=== PATIENT | female | born 1940 | race Caucasian/White ===

== ENCOUNTER 2023-10-04 13:02 | Inpatient (IN) | payer OTHER, SELFPAY ==
[2023-10-04 08:04] VITALS: BP 170/72
[2023-10-04 08:11] VITALS: BMI 29.2
[2023-10-04] MEDS: TYLENOL 1000 MG PO (09:16)
--- NOTE | 2023-10-04 09:22 | ED.GENMED ---
History of Present Illness
General
Chief Complaint: Fall
Source: patient
Exam Limitations: none
Time Seen by Provider: 10/04/23 08:24
Nursing documentation reviewed up to this point in time: agreed with
Travel History
Have you had any contact with someone who has COVID-19?: No
Do you have any symptoms of coronavirus? Fever > 100 degrees, chills, cough, shortness of breath, sore throat, loss of taste or smell, muscle aches, or headache?: No
History of Present Illness
History of Present Illness:
Patient presents to ED for evaluation after losing balance and falling onto ceramic floor this morning, while using her rolling walker. Patient denies loss of consciousness. Denies headache. Denies neck pain. Patient is complaining of left wrist
and elbow pain from the fall. Patient unsure of her last tetanus vaccination.
Past History
Past History
ED Past Medical History: Hypercholesterolemia, Hypothyroidism and Other (kidney stone)
ED Past Surgical History: Orthopedic
Social History
Tobacco: Non-smoker
Alcohol: None
Review of Systems
Review of Systems
Allergies reviewed?: Yes
All Other Systems: ROS reviewed and negative except as documented in HPI and ROS
Constitutional: Reports no symptoms
Respiratory: Reports no symptoms
Cardiac: Reports no symptoms; Denies chest pain, palpitations or syncope
ABD/GI: Reports no symptoms
Musculoskeletal: Reports other (Elbow and wrist pain with swelling)
Skin: Reports no symptoms
Neurological: Reports no symptoms
Phy Exam
Physical Exam
Physical Exam:
Physical Exam
General: mild painful distress, not acutely ill. afebrile
Head: nc/at. eomi
Neck: supple. normal range of motion.
Heart: s1/s2 regular rate and rhythm, no murmur. equal radial pulses.
Lungs: no acute respiratory distress. clear bilaterally
Abdomen: normal bowel sounds. not tender.
Neuro: alert and oriented. no focal neurological deficits
Skin: superficial laceration noted distal to left olecranon with moderate swelling.
Psychiatric: well kept. interactive and cooperative
Extremities: left wrist tenderness, with an approx 1mm laceration on the volar surface, without active bleeding.
Course
Orders/Labs/Results
Orders:
Orders
10/04/23 08:51
Acetaminophen [Tylenol] 1,000 mg PO NOW STA
Tetanus/Diphth/Acelpertussis [Adacel] 0.5 ml IM .ONCE ONE
CR Elbow - Left Min 3 Views Urgent
Comment:
Reason For Exam: trauma
CR Wrist - Left Min 3 Views Urgent
Comment:
Reason For Exam: trauma
10/04/23 Lunch
Regular
At Your Request: Limited, Lens Block Gauger Required
Reason for opting out of [employer] order writing: Provider Decision
10/04/23 10:13
Electrocardiogram (*1) Urgent
Reason for Study: PreOp
EKG- Treatment ONCE
HYDROmorphone [Dilaudid] 0.5 mg IV NOW STA
10/04/23 10:26
Basic Metabolic Panel Urgent
Complete Blood Count/No Diff Urgent
PTT Urgent
Prothrombin Time Urgent
10/04/23 10:30
CeFAZolin 1 GRAM [Ancef] 1 gram in 5 ml IV NOW
10/04/23 12:41
HYDROmorphone [Dilaudid] 0.5 mg IV Q3HPRN PRN
Ondansetron Injectable [Zofran] 4 mg IV Q6HPRN PRN
10/04/23 12:42
HydrALAZINE [Apresoline] 50 mg PO TIDPRN PRN
10/04/23 12:43
Admit/Transfer Patient As Directed
Co-Sign Provider:
Level of Care: Inpatient admission
Assign to:: Medical/Surgical
Physician / Group: christiane okeefe
Diagnosis: left elbow/wrist fracture
Reason for Hospitalization: left elbow/wrist fracture
Expected length of stay greater than two midnights?: Yes
ELOS- Estimated Length of Stay in days: 2
I certify the patient meets the requirements for IP care: Yes
10/04/23 12:50
Code Status As Directed
Resuscitation Status: Full Code
10/04/23 14:20
Polyethylene Glycol Powder [Miralax] 17 grams PO DAILY
10/04/23 14:20
ORTHOPEDIC CONSULT Routine
Consulting Provider: Alfredo Shea
Was physician already notified: Yes
Activity As Directed
Activity Level: Ambulate
Pneumatic Compression Sleeves As Directed
Type: Knee high
Vital Signs As Directed
Frequency: Per unit guidelines
Ot Eval And Treat Routine
Pt Eval And Treat Routine
Activity Level: Ambulate
DX Deep Vein Thrombosis Video Routine
10/04/23 16:27
Artificial Tears (Pf) [Refresh Eye Drops (Pf)] 0 drops OPHTH BIDPRN PRN
10/04/23 20:00
Brimonidine Tartrate/Timolol [Combigan Eye Drops] 1 drop LEFT EYE BID
10/04/23 22:00
Citalopram [Celexa] 20 mg PO HS
Rosuvastatin Calcium [Crestor] 20 mg PO HS
tafluprost (PF) [Zioptan (PF)] 1 drop BOTH EYES HS
10/05/23 06:00
CeFAZolin 2 GRAM [Ancef] 2 grams in 10 ml IV PRE PROCEDURE
10/05/23 06:24
Basic Metabolic Panel IN AM
Complete Blood Count/No Diff IN AM
Magnesium IN AM
10/05/23 07:00
Levothyroxine [Synthroid] 88 mcg PO DAILY@0700
10/05/23 08:00
Calcium Carbonate [Oscal Iron 500] 1,000 mg PO DAILY
Estradiol Vaginal [Estrace 0.01% Vaginal Cream] 1 applic VAG DAILY
Lactobac/Bifidobac [Visbiome] 1 cap PO DAILY
10/06/23 06:00
Basic Metabolic Panel IN AM
Complete Blood Count/No Diff IN AM
10/07/23 06:00
Basic Metabolic Panel IN AM
Complete Blood Count/No Diff IN AM
Abnormal Lab Results
10/04/23
10:26
WBC 12.1 H 10^3/uL
(4.8-10.8)
Chloride 108 H mmol/L
(98-107)
Glucose 116 H mg/dl
(70-99)
10/04/23 10:26
10/04/23 10:26
Vital Signs
Initial and Last Documented VS:
Initial Vital Signs
Temp Pulse Resp BP Pulse Ox
98.1 F 59 20 170/72 99
10/04/23 08:04 10/04/23 08:04 10/04/23 08:04 10/04/23 08:04 10/04/23 08:04
Last Documented Vital Signs
Temp Pulse Resp BP Pulse Ox
98.1 F 122 16 206/106 94
10/05/23 10:05 10/05/23 10:05 10/05/23 10:05 10/05/23 10:05 10/05/23 10:05
MDM/Problems Addressed
MDM/Problems Addressed:
X-ray report reviewed and discussed with (orthopaedic surgery). Recommends irrigating with betadine and steri strip application, along with iv ancef 1g iv Q8hr. Will see patient as consult.
*Critical Care Note
Total Time (30-74mins, 75-104mins- exclusive of procedures): Not Applicable
ED Attending Note
-
Portions of this chart may have been created with voice recognition software.� Occasional wrong word or��sound alike� substitutions may have occurred due to the inherent limitations of voice recognition software.
Discharge Plan
Departure
Patient Disposition: Admit
Date of Disposition: 10/04/23
Time of Disposition: 10:33
Admit to: Med/Surg
Presentation/result/management discussed w/ accepting MD/DO: Hospitalist
Discharge Problem:
Elbow fracture, Fracture of wrist, Laceration
Interventions
Interventions:
*Risk Screen - Suicide Last Done: 10/04/23 08:11
*General Assessment Last Done: 10/04/23 08:11
*Neglect/Abuse Screening Last Done: 10/04/23 08:11
*ED COVID-19 Vaccine History Last Done: 10/04/23 08:04
*Nursing Disposition Last Done: 10/04/23 14:25
ED-Musculoskeletal Assessment Last Done: 10/04/23 08:13
ED- Neurological Assessment Last Done: 10/04/23 08:12
ED-Skin Assessment Last Done: 10/04/23 08:12
Discharge Date and Time
Discharge Date/Time: 10/04/23 14:26
[2023-10-04 09:37] VITALS: BP 171/89
[2023-10-04 10:00] VITALS: BP 174/72
[2023-10-04] MEDS: DILAUDID 0.5 MG IV ×3 (10:24→20:22)
[2023-10-04 10:32] LABS: Hematocrit 40.4 % (37.0-47.0); Hemoglobin 13.8 g/dL (12.0-16.0); Mean Corp Hgb Conc. 34.2 g/dL (33.0-37.0); Mean Corpuscular Hgb 30.4 pg (27.0-31.0); Mean Platelet Volume 8.3 fL (7.4-10.4); Platelet Count 333 10^3/uL (130-400); Red Blood Cell Count 4.54 10^6/uL (4.20-5.40); Red Cell Dist. Width 13.2 % (11.5-14.5); White Blood Cell Count 12.1 10^3/uL (4.8-10.8)
[2023-10-04 10:43] LABS: INR 1.05; PT 13.5 Sec (11.4-14.6)
[2023-10-04 10:44] LABS: APTT 33.7 Sec (23.4-35.0)
--- NOTE | 2023-10-04 11:10 | W.PN.UPDATE ---
Update Note
Progress Note Update
Chart reviewed and case discussed with Dr. Lombardo
Can treat elbow fx conservatively
Would recommend closed reduction and pinning for distal radius and ulna tomorrow
For OR in AM//Made NPO
Thanks
GGMD
[2023-10-04 11:38] LABS: Blood Urea Nitrogen 15 mg/dl (7-17); Calcium 9.6 mg/dl (8.4-10.2); Carbon Dioxide 26 mmol/L (22-30); Chloride 108 mmol/L (98-107); Estimated Creatinine Clearance 45 ml/min; Glucose 116 mg/dl (70-99); Potassium 3.5 mmol/L (3.5-5.1); Sodium 139 mmol/L (135-145); eGFR > 60.00
[2023-10-04] MEDS: ANCEF 5 IV (11:49)
--- NOTE | 2023-10-04 12:03 | HPS.HSE ---
Family Physician
-
Family Physician: Dawn Liu
Chief Complaint
-
left wrist pain
History of Present Illness
82-year-old female with a past medical history of osteoporosis, recurrent bone fractures, recurrent mechanical falls, hypothyroidism, and hyperlipidemia presents with left wrist pain status post mechanical fall. Patient was using her rolling
walker, lost her balance, and fell onto the ceramic floor this morning. She did hit her head, denies loss of consciousness. Denies headache, denies nausea, denies vomiting. She was found to have an acute on chronic fracture of the distal radius
and ulnar, as well as an acute left olecranon fracture. No chest pain, no shortness of breath, no palpitations. No nausea, no vomiting. No lightheadedness, no dizziness. No dysuria.
Medical History
Past Medical History
Past Medical History: Reports Other
Additional Past Medical History:
Recurrent ureterolithiasis
Recurrent cystitis
Hypercholesterolemia
Hypothyroidism
Anxiety
Osteoporosis
Recurrent mechanical falls
Past Surgical History: Reports Other
Additional Past Surgical History:
Multiple cystoscopies with stent placements
Left total hip replacement with revision
Appendectomy
Left shoulder surgery
Right knee surgery
Bilateral carpal tunnel release
Social History
Tobacco: Non-smoker
Alcohol: None
Drug: None
Family History
Family History: Not pertinent
Allergies / Home Medications
Allergies reflects when Allergies were last updated in [employer].
Home Medications with original date entered in [employer]
Allergy/Medication List:
Allergies
Allergy/AdvReac Type Severity Reaction Status Date / Time
No Known Allergies Allergy Verified 03/08/23 09:15
Home Medications Table - record
Medication Instructions Recorded Confirmed
Lactobacillus acidophilus 10 10,000 mmu cells PO DAILY 02/21/23 10/04/23
billion cell capsule (Probiotic)
ascorbic acid (vitamin C) 250 mg 250 mg PO DAILY 02/21/23 10/04/23
chewable tablet (Vitamin C)
calcium carbonate 500 mg calcium 1,000 mg PO DAILY 02/21/23 10/04/23
(1,250 mg) tablet
citalopram 20 mg tablet 20 mg PO HS 02/21/23 10/04/23
cranberry extract 200 mg capsule 200 mg PO DAILY 02/21/23 10/04/23
(Ellura)
docusate sodium 100 mg capsule 100 mg PO DAILY 02/21/23 10/04/23
(Colace)
estradiol 0.01% (0.1 mg/gram) 0 appful vaginal DAILY 02/21/23 10/04/23
vaginal cream
glucosamine sulfate 500 mg tablet 500 mg PO DAILY 02/21/23 10/04/23
(Glucosamine)
levothyroxine 88 mcg tablet 88 mcg PO DAILY 02/21/23 10/04/23
(Levoxyl)
multivitamin 1 tab PO DAILY 02/21/23 10/04/23
polyvinyl alcohol 1.4 % eye drops 1 drp BOTH EYES BIDPRN PRN dry eyes 02/21/23 10/04/23
rosuvastatin 20 mg tablet (Crestor) 20 mg PO HS 02/21/23 10/04/23
tafluprost (PF) 0.0015 % eye drops 1 drp BOTH EYES HS 02/21/23 10/04/23
in a dropperette (Zioptan (PF))
brimonidine 0.2 %-timolol 0.5 % 1 drp LEFT EYE BID 10/04/23 10/04/23
eye drops (Combigan)
magnesium 250 mg tablet 250 mg PO DAILY 10/04/23 10/04/23
Review of Systems
-
A 12 point ROS was completed and negative except as noted: Yes
Physical Exam
Vital Signs
Vital Signs
Temp Pulse Resp BP Pulse Ox
98.1 F 59 20 174/72 97
10/04/23 08:04 10/04/23 08:04 10/04/23 08:04 10/04/23 10:00 10/04/23 11:30
Physical Exam
General: No Apparent Distress
HEENT: NormoCephalic, Anicteric, Moist mucous membranes and Other (Mild ecchymosis and skin tear on the left orbit)
Respiratory: Clear
Cardiac: S1/S2 and Regular Rhythm
GI: Soft, Non Tender, Non Distended and Normal Bowel Sounds
Musculoskeletal: No Clubbing, No Cyanosis, No Edema and Other (Left wrist splinted)
Neuro: Awake, Alert and Oriented
Psych: Calm
Laboratory Results
-
10/04/23 10:26
10/04/23 10:26
Laboratory Results
PT 13.5 Sec (11.4-14.6) 10/04/23 10:26
INR 1.05 10/04/23 10:26
APTT 33.7 Sec (23.4-35.0) 10/04/23 10:26
Impression/Plan
-
HPI: 82-year-old female with a past medical history of osteoporosis, recurrent bone fractures, recurrent mechanical falls, hypothyroidism, and hyperlipidemia presents with left wrist pain status post mechanical fall. Patient was using her rolling
walker, lost her balance, and fell onto the ceramic floor this morning. She did hit her head, denies loss of consciousness. Denies headache, denies nausea, denies vomiting. She was found to have an acute on chronic fracture of the distal radius
and ulnar, as well as an acute left olecranon fracture. No chest pain, no shortness of breath, no palpitations. No nausea, no vomiting. No lightheadedness, no dizziness. No dysuria.
#Acute on chronic distal radius and ulna fracture
Appreciate orthopedic surgery input, plan for closed reduction and pinning of the distal radius and ulna tomorrow
Pain control, n.p.o. after midnight for surgery tomorrow
#Nondisplaced fracture of the left olecranon process
Conservative management, pain control, PT/OT
#Closed head injury
Check head CT to rule out bleed
#Leukocytosis
Mild, suspect reactive
No signs or symptoms of infection
Monitor off antibiotics
#Ecchymosis/skin tear on left orbit
Supportive management
#Hyperlipidemia
Continue Crestor
#Hypothyroidism continue levothyroxine
#Anxiety
Continue SSRI
#Glaucoma
Continue eyedrops
DVT prophylaxis�SCDs
Full code
--- NOTE | 2023-10-04 13:09 | CM ---
Patient admitted from home after fall resulting in left elbow and left wrist fracture. Plan for surgical repair of wrist on 10/05/23.
Met patient, dgtr Gypsy and son Andrea in ER room. Her children do not live nearby. Patient lives alone on one level home with one step to enter. She is independent at home. SHe use walker to ambulate. She has w/c , rolling walker, cane,
shower seat, shower rails, one toilet rail, comfort height toilet and a RTS.
She has been to SNF rehab in past after hip surgery at [facility]. Due to her WB status she had to go to assisted living after SNF rehab then went home.
Discussed options for SNf if needed, depending on her WB status post surgery.
Dgtr had list of SNF options from patient's last hospitalization for hip fracture at [facility].
Referrals sent to [facility], [facility], [facility] and [facility].
PCP DR. Dawn Agosto
Pharmacy' [facility].
PLAN: Snf rehab.
[2023-10-04 14:30] VITALS: BP 187/84
[2023-10-04 15:00] VITALS: BP 156/83
[2023-10-04] MEDS: MIRALAX 17 GRAMS PO (15:59)
[2023-10-04 16:00] VITALS: BP 159/81
[2023-10-04] MEDS: CELEXA 20 MG PO (20:21)
[2023-10-04] MEDS: COMBIGAN EYE DROPS 1 DROP LEFT EYE (20:21)
[2023-10-04] MEDS: CRESTOR 20 MG PO (20:21)
[2023-10-05] VITALS (19 sets, daily range): BP systolic 124–206; BP diastolic 46–106; PULSE 89–91; O2SAT 93–95; BMI 28.1
[2023-10-05] MEDS: DILAUDID 0.5 MG IV ×2 (00:48→07:34)
[2023-10-05 01:12] LABS: Urine Albumin 1+ (Neg - Trace); Urine Bilirubin Negative (Negative); Urine Color Yellow; Urine Glucose Negative (Negative); Urine Ketone Negative (Negative); Urine Leukocyte 2+ (Negative); Urine Nitrite Negative (Negative); Urine Occult Blood 4+ (Negative); Urine Specific Gravity 1.025 (<1.030); Urine Urobilinogen Negative (Neg - 1+)
[2023-10-05 01:20] LABS: Urine Character Cloudy (Clear)
[2023-10-05 01:23] LABS: Urine Bacteria Moderate (Negative); Urine Calcium Oxalate Crystals Seen; Urine White Cell >100 /HPF (0-5)
[2023-10-05] MEDS: SYNTHROID 88 MCG PO (05:58)
[2023-10-05] MEDS: ANCEF 10 IV (05:58)
[2023-10-05 07:15] LABS: Hematocrit 41.5 % (37.0-47.0); Hemoglobin 13.7 g/dL (12.0-16.0); Mean Corpuscular Hgb 30.4 pg (27.0-31.0); Mean Platelet Volume 8.5 fL (7.4-10.4); Platelet Count 350 10^3/uL (130-400); Red Blood Cell Count 4.51 10^6/uL (4.20-5.40); Red Cell Dist. Width 13.3 % (11.5-14.5); White Blood Cell Count 11.8 10^3/uL (4.8-10.8)
[2023-10-05 07:59] LABS: Blood Urea Nitrogen 18 mg/dl (7-17); Calcium 9.6 mg/dl (8.4-10.2); Carbon Dioxide 27 mmol/L (22-30); Chloride 103 mmol/L (98-107); Estimated Creatinine Clearance 44 ml/min; Glucose 125 mg/dl (70-99); Magnesium 2.1 mg/dl (1.6-2.3); Potassium 3.9 mmol/L (3.5-5.1); Sodium 142 mmol/L (135-145); eGFR > 60.00
--- NOTE | 2023-10-05 09:04 | W.PN.UPDATE ---
Update Note
Progress Note Update
Both elbow and wrist fxs may be Grade 1 open type
Because of this please keep on IV ancef while an inpatient and then give Keflex 500mg po 4x/day for 2 weeks upon discharge
Please have F/U with me in about 7-10 days as outpt
thanks
GGMD
[2023-10-05] MEDS: MORPHINE SULFATE 1 MG IV (09:31)
[2023-10-05] MEDS: APRESOLINE 50 MG PO (10:30)
[2023-10-05] MEDS: VISBIOME 1 CAP PO (10:31)
[2023-10-05] MEDS: OSCAL CAL 500 1000 MG PO (10:31)
[2023-10-05] MEDS: COMBIGAN EYE DROPS 1 DROP LEFT EYE ×2 (10:33→20:39)
[2023-10-05] MEDS: MIRALAX 17 GRAMS PO (10:35)
[2023-10-05] MEDS: SENOKOT-S 2 TABLET PO (12:02)
[2023-10-05] MEDS: STERILE WATER FOR INJECTION 10 ML IV (12:02)
[2023-10-05] MEDS: ROCEPHIN 1000 MG IV (12:02)
--- NOTE | 2023-10-05 13:24 | W.PN.HOSP.TC ---
Today's Communication/Plan
-
See bold
Assessment / Plan
Assessment / Plan
HPI: HPI: 82-year-old female with a past medical history of osteoporosis, recurrent bone fractures, recurrent mechanical falls, hypothyroidism, and hyperlipidemia presents with left wrist pain status post mechanical fall.� Patient was using her
rolling walker, lost her balance, and fell onto the ceramic floor this morning.� She did hit her head, denies loss of consciousness.� Denies headache, denies nausea, denies vomiting.� She was found to have an acute on chronic fracture of the distal
radius and ulnar, as well as an acute left olecranon fracture.� No chest pain, no shortness of breath, no palpitations.� No nausea, no vomiting.� No lightheadedness, no dizziness.� No dysuria.
#Acute on chronic distal radius and ulna fracture
Appreciate orthopedic surgery input, s/p closed reduction and pinning of the distal radius and ulna 10/[address] Shea
Pain control, PT/OT
Ortho would like patient on IV Ancef while inpatient, then give Keflex 500mg po 4x/day for 2 weeks upon discharge
Patient currently getting IV Rocephin for possible UTI -hold IV Ancef while getting IV Rocephin
Follow-up with orthopedic surgery in the office in 7-10 days
#Nondisplaced fracture of the left olecranon process
Conservative management, pain control, PT/OT
#Acute urinary retention
Straight cath protocol, bowel regimen
#Possible acute urinary tract infection
Start Rocephin day 1, follow-up on urine cultures
#Labile hypertension with intermittent tachycardia
Start Coreg 6.25 mg twice daily, continue hydralazine 50 mg p.o. 3 times daily as needed
#Closed head injury
Head CT negative
#Ecchymosis/skin tear on left orbit
Supportive management
#Hyperlipidemia
Continue Crestor
#Hypothyroidism continue levothyroxine
#Anxiety
Continue SSRI
#Glaucoma
Continue eyedrops
DVT prophylaxis�subcu Lovenox
Full code
Updated daughter at bedside 10/04
Total time spent to see the patient on the floor, examine the patient, review data and lab results, discuss treatment plan with patient, nursing staff around 51 minutes.
Physical Exam
General: No acute distress
HEENT: Normocephalic, Atraumatic, EOMI, MMM
Respiratory: Clear to Auscultation bilaterally
Cardiac: Normal S1/S2, Regular Rate and Rhythm
GI: Soft, Nontender, Nondistended, Normal Bowel Sounds
Extremities: No Clubbing, Cyanosis
Musculoskeletal: Left arm in splint
Neuro: Nonfocal/Grossly Intact
Anticipated Discharge: Within 24 hours
Subjective/Interval History
-
Date of Service: October 05, 2023
Patient reports that her left wrist pain is tolerable. No fever, no nausea, no vomiting. No dysuria.
Nursing reports she has urinary retention.
Objective Data
-
Labs:
Laboratory Results
10/05/23
06:24
WBC 11.8 H
Hgb 13.7
Hct 41.5
Plt Count 350
Sodium 142
Potassium 3.9
Chloride 103
Carbon Dioxide 27
BUN 18 H
Creatinine 0.9
Glucose 125 H
Calcium 9.6
Vital Signs:
Vital Signs
Temp Pulse Resp BP Pulse Ox
98.7 F 86 16 184/88 96
10/05/23 07:00 10/05/23 07:00 10/05/23 07:00 10/05/23 07:00 10/05/23 07:00
I&O
10/04/23 10/05/23 10/06/23
06:59 06:59 06:59
Intake Total 360 / 360
Output Total 650 / 650
Balance -290 / -290
[2023-10-05] MEDS: TYLENOL 1000 MG PO ×2 (15:39→22:39)
[2023-10-05] MEDS: SENOKOT-S PO (20:36)
[2023-10-05] MEDS: MIRALAX PO (20:36)
[2023-10-05] MEDS: CRESTOR 20 MG PO (22:40)
[2023-10-05] MEDS: CELEXA 20 MG PO (22:40)
[2023-10-06] VITALS (8 sets, daily range): BP systolic 101–173; BP diastolic 44–82; PULSE 60; O2SAT 95
[2023-10-06] MEDS: SYNTHROID 88 MCG PO (04:34)
--- NOTE | 2023-10-06 04:41 | PTCARENOTE ---
Upon neuro vascular assessment, c/o numbness on tip of the first four finger ( not the pinky one). but able to feel, able to move the fingers, color- pink, capillary refill <2sec ,warm, stable vitals, unable to feel the pulse as splint/ wendy bandage
covering the entire arm. but the splint seems to be tighter because of Patients swelling of the hand. Notified agusto ARMENTA. Notified Dr Shea as per advise via TT. No new orders at this time.
[2023-10-06 05:50] LABS: Hematocrit 32.2 % (37.0-47.0); Mean Corp Hgb Conc. 34.2 g/dL (33.0-37.0); Mean Corpuscular Hgb 30.9 pg (27.0-31.0); Mean Corpuscular Volume 90.4 fL (81.0-99.0); Mean Platelet Volume 8.7 fL (7.4-10.4); Platelet Count 281 10^3/uL (130-400); Red Blood Cell Count 3.56 10^6/uL (4.20-5.40); Red Cell Dist. Width 13.4 % (11.5-14.5); White Blood Cell Count 15.9 10^3/uL (4.8-10.8)
[2023-10-06 06:08] LABS: Blood Urea Nitrogen 26 mg/dl (7-17); Calcium 9.1 mg/dl (8.4-10.2); Carbon Dioxide 25 mmol/L (22-30); Chloride 109 mmol/L (98-107); Estimated Creatinine Clearance 44 ml/min; Glucose 117 mg/dl (70-99); Sodium 137 mmol/L (135-145); eGFR > 60.00
[2023-10-06] MEDS: OSCAL CAL 500 1000 MG PO (07:22)
[2023-10-06] MEDS: TYLENOL 1000 MG PO ×3 (07:25→21:33)
[2023-10-06] MEDS: SENOKOT-S 2 TABLET PO (07:25)
[2023-10-06] MEDS: VISBIOME 1 CAP PO (07:25)
[2023-10-06] MEDS: COMBIGAN EYE DROPS 1 DROP LEFT EYE ×2 (07:25→20:04)
[2023-10-06] MEDS: MIRALAX 17 GRAMS PO (07:28)
--- NOTE | 2023-10-06 09:33 | W.PN.HOSP.TC ---
Today's Communication/Plan
-
laxatives for constipation
d/c planning for rehab
Assessment / Plan
Assessment / Plan
HPI: HPI: 82-year-old female with a past medical history of osteoporosis, recurrent bone fractures, recurrent mechanical falls, hypothyroidism, and hyperlipidemia presents with left wrist pain status post mechanical fall.� Patient was using her
rolling walker, lost her balance, and fell onto the ceramic floor this morning.� She did hit her head, denies loss of consciousness.� Denies headache, denies nausea, denies vomiting.� She was found to have an acute on chronic fracture of the distal
radius and ulnar, as well as an acute left olecranon fracture.� No chest pain, no shortness of breath, no palpitations.� No nausea, no vomiting.� No lightheadedness, no dizziness.� No dysuria.
#Acute on chronic distal radius and ulna fracture
Multifactorial from trauma and osteoporosis
s/p closed reduction and pinning of the distal radius and ulna 10/[address] Shea
Pain control, PT/OT
Follow-up with orthopedic surgery in the office in 7-10 days
#Nondisplaced fracture of the left olecranon process
Conservative management, in sling
pain control, PT/OT
# Constipation - narcotic use related
provide dose of milk of mag and dulcolax suppos
if no BM then enema will be required
#Acute urinary retention
Straight cath protocol, bowel regimen
#Possible acute urinary tract infection
Urine cs pending
Rocephin day 2
#Labile hypertension with intermittent tachycardia
hold coreg dose as BP improved
continue PO hydralazine at home dose
#Closed head injury
Head CT negative
#Ecchymosis/skin tear on left orbit
Supportive management
#Hyperlipidemia
Continue Crestor
#Hypothyroidism continue levothyroxine
#Anxiety
Continue SSRI
#Glaucoma
Continue eyedrops
DVT prophylaxis�subcu Lovenox
Full code
Anticipated Discharge: Within 24 hours
Subjective/Interval History
-
Date of Service: October 06, 2023
resting comfortably in chair
denies of having any pain/discomfort
no BM from Friday
Objective Data
-
Labs:
Laboratory Results
10/06/23
05:23
WBC 15.9 H
Hgb 11.0 L
Hct 32.2 L
Plt Count 281
Sodium 137
Potassium 4.0
Chloride 109 H
Carbon Dioxide 25
BUN 26 H
Creatinine 0.9
Glucose 117 H
Calcium 9.1
Vital Signs:
Vital Signs
Temp Pulse Resp BP Pulse Ox
97.6 F 74 16 144/71 97
10/06/23 08:00 10/06/23 08:00 10/06/23 08:00 10/06/23 08:00 10/06/23 08:00
I&O
10/05/23 10/06/23 10/07/23
06:59 06:59 06:59
Intake Total 360 / 360 1215 / 1215
Output Total 650 / 650 800 / 800
Balance -290 / -290 415 / 415
Review of Systems
-
Respiratory: Reports No Symptoms
Cardiac: Reports No Symptoms
Abdomen/GI: Reports No Symptoms
Physical Exam
-
General: Comfortable
HEENT: Negative Oxygen
Respiratory: Clear to Auscultation
Cardiac: Regular Rhythm and S1/S2; Negative Murmur or Rub
GI: Soft, Nontender and Nondistended
Musculoskeletal: No Edema and Other (Left arm in sling)
Neuro: Awake, Alert, Oriented, No Motor Deficits, Nonfocal/Grossly Intact and Other (some numbness/tingling of distal phalanges)
Psych: Calm
[2023-10-06] MEDS: MILK OF MAGNESIA 30 ML PO (10:31)
[2023-10-06] MEDS: ROCEPHIN 1000 MG IV (11:06)
[2023-10-06] MEDS: STERILE WATER FOR INJECTION 10 ML IV (11:06)
--- NOTE | 2023-10-06 12:27 | CM ---
Addendum entered by Rianna Zuniga 10/06/23 14:50:
Additional records forwarded to Marilia in admissions at [facility].
Original Note:
Patient has been recommended for SNF. [facility] has accepted patient. Patient accepted bed. Marilia in admissions notified. Marilia # [phone], .
--- NOTE | 2023-10-06 13:35 | W.PN.UPDATE ---
Update Note
Progress Note Update
Some swelling L hand
Minimal N/T
Has had previous CTR in past
Rec; -Elevation/ROM of digits
Please have F/U with me in about 7-10 days
Thanks
GGMD
[2023-10-06] MEDS: SENOKOT-S PO (20:04)
[2023-10-06] MEDS: MIRALAX PO (20:04)
[2023-10-06] MEDS: CELEXA 20 MG PO (21:33)
[2023-10-06] MEDS: CRESTOR 20 MG PO (21:33)
[2023-10-06] MEDS: ESTRACE 0.01% VAGINAL CREAM 1 APPLIC VAG (21:36)
[2023-10-07] MEDS: SYNTHROID 88 MCG PO (04:21)
[2023-10-07 04:54] LABS: Hematocrit 31.1 % (37.0-47.0); Hemoglobin 10.5 g/dL (12.0-16.0); Mean Corp Hgb Conc. 33.8 g/dL (33.0-37.0); Mean Corpuscular Hgb 30.9 pg (27.0-31.0); Mean Corpuscular Volume 91.5 fL (81.0-99.0); Mean Platelet Volume 8.9 fL (7.4-10.4); Platelet Count 268 10^3/uL (130-400); Red Cell Dist. Width 13.6 % (11.5-14.5); White Blood Cell Count 10.3 10^3/uL (4.8-10.8)
[2023-10-07 05:19] LABS: Blood Urea Nitrogen 27 mg/dl (7-17); Calcium 9.3 mg/dl (8.4-10.2); Carbon Dioxide 28 mmol/L (22-30); Chloride 104 mmol/L (98-107); Estimated Creatinine Clearance 44 ml/min; Glucose 94 mg/dl (70-99); Potassium 3.8 mmol/L (3.5-5.1); Sodium 139 mmol/L (135-145); eGFR > 60.00
[2023-10-07 07:32] VITALS: BP 139/69
[2023-10-07] MEDS: MIRALAX PO ×2 (08:02→20:28)
[2023-10-07] MEDS: SENOKOT-S PO ×2 (08:03→20:28)
[2023-10-07] MEDS: COMBIGAN EYE DROPS 1 DROP LEFT EYE ×2 (08:04→20:25)
[2023-10-07] MEDS: TYLENOL 1000 MG PO ×3 (08:05→20:25)
[2023-10-07] MEDS: OSCAL CAL 500 1000 MG PO (08:05)
[2023-10-07] MEDS: VISBIOME 1 CAP PO (08:06)
[2023-10-07] MEDS: ROCEPHIN 1000 MG IV (11:32)
[2023-10-07] MEDS: STERILE WATER FOR INJECTION 10 ML IV (11:32)
[2023-10-07] MEDS: FLUSH (NSS) 2 FLUSH IV (11:33)
--- NOTE | 2023-10-07 12:52 | W.PN.HOSP.TC ---
Today's Communication/Plan
-
d/c snf rehab
Assessment / Plan
Assessment / Plan
HPI: HPI: 82-year-old female with a past medical history of osteoporosis, recurrent bone fractures, recurrent mechanical falls, hypothyroidism, and hyperlipidemia presents with left wrist pain status post mechanical fall.� Patient was using her
rolling walker, lost her balance, and fell onto the ceramic floor this morning.� She did hit her head, denies loss of consciousness.� Denies headache, denies nausea, denies vomiting.� She was found to have an acute on chronic fracture of the distal
radius and ulnar, as well as an acute left olecranon fracture.� No chest pain, no shortness of breath, no palpitations.� No nausea, no vomiting.� No lightheadedness, no dizziness.� No dysuria.
#Acute on chronic distal radius and ulna fracture
Multifactorial from trauma and osteoporosis
s/p closed reduction and pinning of the distal radius and ulna 10/[address] Shea
Pain control, PT/OT
Follow-up with orthopedic surgery in the office in 7-10 days
#Nondisplaced fracture of the left olecranon process
Conservative management, in sling
pain control, PT/OT
# Constipation - narcotic use related - resolved
resolved with milk of mag and dulcolax suppos
#Acute urinary retention
Straight cath protocol, bowel regimen
#Asymptomatic bacteriuria
Urine cs growing Enterococcus fecalis
was on 3 day rocephin (not effective per susceptibility) , still wbc normalized and afebrile w/o symptoms
discontinue further abx.
No indication rechecking unless has dysuria/fever/confusion
#Labile hypertension with intermittent tachycardia
Bp controlled without any medication
#Closed head injury
Head CT negative
#Ecchymosis/skin tear on left orbit
Supportive management
#Hyperlipidemia
Continue Crestor
#Hypothyroidism continue levothyroxine
#Anxiety
Continue SSRI
#Glaucoma
Continue eyedrops
DVT prophylaxis�subcu Lovenox
Full code
More than 30 minutes spent in discharge including
Final examination of the patient
Summarizing hospital stay
Instructions for continuing care to all relevant caregivers
Preparation of discharge records, prescriptions, and referral forms
Total time spent (in minutes): 40 mins
Anticipated Discharge: Today
Subjective/Interval History
-
Date of Service: October 07, 2023
Complaining of left hand finger numbness
no significant pain problems
Objective Data
-
Labs:
Laboratory Results
10/07/23
04:18
WBC 10.3
Hgb 10.5 L
Hct 31.1 L
Plt Count 268
Sodium 139
Potassium 3.8
Chloride 104
Carbon Dioxide 28
BUN 27 H
Creatinine 0.9
Glucose 94
Calcium 9.3
Vital Signs:
Vital Signs
Temp Pulse Resp BP Pulse Ox
98.2 F 62 16 139/69 97
10/07/23 07:32 10/07/23 07:32 10/07/23 07:32 10/07/23 07:32 10/07/23 07:32
I&O
10/06/23 10/07/23 10/08/23
06:59 06:59 06:59
Intake Total 1215 / 1215 1440 / 1440
Output Total 800 / 800 200 / 200
Balance 415 / 415 1240 / 1240
Review of Systems
-
Respiratory: Reports No Symptoms
Cardiac: Reports No Symptoms
Abdomen/GI: Reports No Symptoms
Physical Exam
-
General: Comfortable
HEENT: Negative Oxygen
Respiratory: Clear to Auscultation
Cardiac: Regular Rhythm and S1/S2; Negative Murmur or Rub
GI: Soft, Nontender and Nondistended
Musculoskeletal: No Edema and Other (Left arm in sling)
Neuro: Awake, Alert, Oriented, No Motor Deficits, Nonfocal/Grossly Intact and Other (some numbness/tingling of distal phalanges)
Psych: Calm
--- NOTE | 2023-10-07 13:20 | CM ---
Addendum entered by Rianna Zuniga 10/07/23 15:19:
Patient was scheduled for transport to [facility] at 4:30pm. Acute ambulance called and they have an emergency and cannot transport patient until 9:15 this evening. This CM called admissions at and they cannot accept patient that late.
Transport will be rescheduled for 10/08/23 in AM. Patient, MD and team aware.
Original Note:
Patient has been medically cleared for discharge to [facility] for longterm and rehab services. [employer] insurance auth obtained:
Auth # [id number], Level 1 SNF for 7 days, 10/07/23 through to and including 10/13/23, NRD 10/13/23, [employer] . Transport to be scheduled.
NURSE TO NURSE REPORT # [phone]
FAX # [phone]
[2023-10-07 14:31] VITALS: BP 113/49
--- NOTE | 2023-10-07 17:04 | PN.CDI ---
CDI
- -
CDI:
Physician Documentation Request
Admit Date: 10/04/23 13:02
Dear Doctor Roberto,
Please review the following and provide your response in the progress notes.
Clinical Indicators:
Pt admitted with Acute on chronic distal radius and ulna fracture/Nondisplaced fracture of the left olecranon process s/p ORIF of radius/ulna on 10/04
Trended Hemoglobin/Hematocrits are as below
10/04/23 10/06/23 10/07/23
10:26 05:23 04:18
Hgb 13.8 11.0 L 10.5 L
Hct 40.4 32.2 L 31.1 L
Please provide a diagnosis for the above lab values:
Acute blood loss anemia
Abnormal lab value only
Other
Use of terms such as suspected, likely, concern for, or probable (associated with a specific diagnosis that is being evaluated, monitored, or treated as if it exists) are acceptable and can be coded in the inpatient setting, when documented at the
time of discharge.
Thank you,
Miladys Silva RN
CDI Specialist
[place] [facility]
Please use your independent medical judgment in providing your response.
[2023-10-07] MEDS: CELEXA 20 MG PO (20:25)
[2023-10-07] MEDS: CRESTOR 20 MG PO (20:25)
[2023-10-07 23:10] VITALS: BP 146/66
[2023-10-08] MEDS: SYNTHROID 88 MCG PO (05:29)
[2023-10-08 07:45] VITALS: BP 144/67
[2023-10-08] MEDS: VISBIOME 1 CAP PO (08:03)
[2023-10-08] MEDS: TYLENOL 1000 MG PO (08:04)
[2023-10-08] MEDS: OSCAL CAL 500 1000 MG PO (08:04)
[2023-10-08] MEDS: COMBIGAN EYE DROPS 1 DROP LEFT EYE (08:04)
[2023-10-08] MEDS: SENOKOT-S 2 TABLET PO (08:07)
[2023-10-08] MEDS: MIRALAX PO (08:09)
--- NOTE | 2023-10-08 09:41 | W.PN.HOSP.TC ---
Addendum entered and electronically signed by Chente Mejia MD 10/09/23 07:32:
Add on dx list
Acute blood loss anemia from sx
Original Note:
Today's Communication/Plan
-
d/c held yesterday evening due to transport issues
d/c rehab
Assessment / Plan
Assessment / Plan
HPI: HPI: 82-year-old female with a past medical history of osteoporosis, recurrent bone fractures, recurrent mechanical falls, hypothyroidism, and hyperlipidemia presents with left wrist pain status post mechanical fall.� Patient was using her
rolling walker, lost her balance, and fell onto the ceramic floor this morning.� She did hit her head, denies loss of consciousness.� Denies headache, denies nausea, denies vomiting.� She was found to have an acute on chronic fracture of the distal
radius and ulnar, as well as an acute left olecranon fracture.� No chest pain, no shortness of breath, no palpitations.� No nausea, no vomiting.� No lightheadedness, no dizziness.� No dysuria.
#Acute on chronic distal radius and ulna fracture
Multifactorial from trauma and osteoporosis
s/p closed reduction and pinning of the distal radius and ulna 3/ by Dr. Shea
Pain control, PT/OT
Follow-up with orthopedic surgery in the office in 7-10 days
#Nondisplaced fracture of the left olecranon process
Conservative management, in sling
pain control, PT/OT
# Constipation - narcotic use related - resolved
resolved with milk of mag and dulcolax suppos
#Acute urinary retention
Straight cath protocol, bowel regimen
#Asymptomatic bacteriuria
Urine cs growing Enterococcus fecalis
was on 3 day rocephin (not effective per susceptibility) , still wbc normalized and afebrile w/o symptoms
discontinue further abx.
No indication rechecking unless has dysuria/fever/confusion
#Labile hypertension with intermittent tachycardia
Bp controlled without any medication
#Closed head injury
Head CT negative
#Ecchymosis/skin tear on left orbit
Supportive management
#Hyperlipidemia
Continue Crestor
#Hypothyroidism continue levothyroxine
#Anxiety
Continue SSRI
#Glaucoma
Continue eyedrops
DVT prophylaxis�subcu Lovenox
Full code
Anticipated Discharge: Today
Subjective/Interval History
-
Date of Service: October 08, 2023
no complains overnight
Objective Data
-
Labs:
Laboratory Results
10/08/23
06:19
Hgb Cancelled
Hct Cancelled
Vital Signs:
Vital Signs
Temp Pulse Resp BP Pulse Ox
97.9 F 63 18 144/67 94
10/08/23 07:45 10/08/23 07:45 10/08/23 07:45 10/08/23 07:45 10/08/23 07:45
I&O
10/07/23 10/08/23 10/09/23
06:59 06:59 06:59
Intake Total 1440 / 1440 720 / 720
Output Total 200 / 200
Balance 1240 / 1240 720 / 720
Review of Systems
-
Respiratory: Reports No Symptoms
Cardiac: Reports No Symptoms
Abdomen/GI: Reports No Symptoms
Physical Exam
-
General: Comfortable
HEENT: Negative Oxygen
Neuro: Awake, Alert and Oriented
--- NOTE | 2023-10-09 07:36 | W.DCSUMMARY ---
Discharge Summary
Discharge Data
Date of Admission: 10/04/23
Date of Discharge: 10/08/23
-
Pending Results: No
Hospital Course
Discharging Physician : Dr Chente Mejia
Disposition : To home
Primary care physician : Dr Dawn Collier
Principal Discharge diagnosis :
Left Distal radial/ulnar fracture requiring surgery
Nondisplaced fracture of left olecranon process
Acute urinary retention
Repair Hypotension
Chronic Discharge diagnosis :
Hyperlipidemia
Hypothyroidism
Depression/anxiety
Hospital Course :
Patient is 82-year-old female with above-mentioned past medical history came to ER after having a mechanical fall at home. Patient was walking around with walker when she lost balance and fell onto the floor. Patient did hit her head although did
not lose consciousness at any point. Patient had significant left arm injury causing pain and swelling. X-ray in the ER showing distal radial ulnar fracture and fracture of left olecranon process. CT head was negative for any acute abnormality.
Orthopedic surgery was involved in care and patient was taken to the OR with closed reduction of distal radius/ulnar fracture. Olecranon fracture was managed conservatively and patient arm was placed in sling. Patient had some elevated blood
pressure postoperatively and required to be given hydralazine although normalized after. Patient also have asymptomatic bacteriuria with Enterococcus faecalis, no other sign of ongoing infection and patient was managed with empiric antibiotic in
hospital. Post medical improvement patient was discharged to long term facility for rehab.
Important imaging findings :
None
Procedure findings :
None
Discharge Plan
-
Patient Disposition: Senior Care/SNF
Discharge Diagnosis/Procedures: Left distal radius/ulna fracture, left elbow fracture
Condition: Fair
Diet: Regular
Activity: As tolerated
Driving Restrictions: No driving
Bathing Restrictions: OK to Shower
Referrals:
Dawn Liu DO [Family Provider] -
Prescriptions:
New
oxycodone 5 mg Tablet
5 mg PO Q4HPRN PRN (Reason: mod sev pain) Qty: 15 0RF
Continued
levothyroxine [Levoxyl] 88 mcg Tablet
88 mcg PO DAILY
citalopram 20 mg Tablet
20 mg PO HS
estradiol 0.01 % (0.1 mg/gram) Cream
0 appful VAGINAL DIRECTED
Rx Instructions:
twice weekly at night
rosuvastatin [Crestor] 20 mg Tablet
20 mg PO HS
tafluprost (PF) [Zioptan (PF)] 0.0015 % Dropperette
1 drp BOTH EYES HS
Probiotic 10 billion cell Capsule
10,000 mmu cells PO DAILY
multivitamin Tablet
1 tab PO DAILY
glucosamine sulfate [Glucosamine] 500 mg Tablet
500 mg PO DAILY
calcium carbonate 500 mg calcium (1,250 mg) Tablet
1,000 mg PO DAILY
ascorbic acid (vitamin C) [Vitamin C] 250 mg Tablet,Chewable
250 mg PO DAILY
docusate sodium [Colace] 100 mg Capsule
100 mg PO DAILY
cranberry extract [Ellura] 200 mg Capsule
200 mg PO DAILY
polyvinyl alcohol 1.4 % Drops
1 drp BOTH EYES BIDPRN PRN (Reason: dry eyes)
magnesium 250 mg Tablet
250 mg PO DAILY
brimonidine-timolol [Combigan] 0.2-0.5 % Drops
1 drp LEFT EYE BID
Discharge Orders:
Discharge Patient (As Directed); Ordered 10/07/23
Ordered By: Chente Mjeia
Discharge Date and Time
Discharge Date/Time: 10/08/23 09:33
== END 2023-10-08 09:33 | DRG 511 ==
LOC: 2 SOUTH 13:02
PROVIDERS: ADMITTING PHYSICIAN Family Medicine; ATTENDING PHYSICIAN Hospitalist; CONSULT PHYSICIAN Orthopaedic Surgery Hand Surgery; EMERGENCY PHYSICIAN Emergency Medicine; FAMILY PHYSICIAN Family Medicine
PROC: 0PSJ34Z Reposition Left Radius with Internal Fixation Device, Percutaneous Approach (ICD-10-PCS; 2023-10-05)
PROC: 0PSL34Z Reposition Left Ulna with Internal Fixation Device, Percutaneous Approach (ICD-10-PCS; 2023-10-05)
DX: M80.032A Age-related osteoporosis with current pathological fracture, left forearm, initial encounter for fracture (principal); D62 Acute posthemorrhagic anemia; N39.0 Urinary tract infection, site not specified; M80.0AXA Age-related osteoporosis with current pathological fracture, other site, initial encounter for fracture; E03.9 Hypothyroidism, unspecified; E78.00 Pure hypercholesterolemia, unspecified; R33.9 Retention of urine, unspecified; B95.2 Enterococcus as the cause of diseases classified elsewhere; I10 Essential (primary) hypertension; K59.00 Constipation, unspecified; F41.9 Anxiety disorder, unspecified; W01.198A Fall on same level from slipping, tripping and stumbling with subsequent striking against other object, initial encounter; Y93.01 Activity, walking, marching and hiking; Y92.009 Unspecified place in unspecified non-institutional (private) residence as the place of occurrence of the external cause; S09.90XA Unspecified injury of head, initial encounter; H40.9 Unspecified glaucoma; R29.6 Repeated falls; Z91.81 History of falling; Z96.642 Presence of left artificial hip joint; Z87.310 Personal history of (healed) osteoporosis fracture; Z79.890 Hormone replacement therapy
CPT/HCPCS: 70450; 73080; 73100; 73110; 76000; 80048; 81003; 81015; 83735; 85027; 85610; 85730; 87077; 87086; 87186; 90471; 93005; 96374; 96375; 97116; 97163; 97167; 97530; 97535; 99285

== ENCOUNTER → 2024-01-27 10:27 | Outpatient (REF) | payer OTHER, SELFPAY | LOC: HWRAD 10:27 | PROVIDERS: ATTENDING PHYSICIAN Urology; FAMILY PHYSICIAN Family Medicine | DX: N20.0 Calculus of kidney (principal); N39.0 Urinary tract infection, site not specified | CPT/HCPCS: 74176 ==

== ENCOUNTER 2024-03-04 06:39 | Day surgery (SDC) | payer OTHER, SELFPAY ==
[2024-03-02 13:17] VITALS: BMI 30.2
[2024-03-02 13:49] LABS: Hematocrit 41.2 % (37.0-47.0); Hemoglobin 14.1 g/dL (12.0-16.0); Mean Corp Hgb Conc. 34.2 g/dL (33.0-37.0); Mean Corpuscular Hgb 31.7 pg (27.0-31.0); Mean Corpuscular Volume 92.6 fL (81.0-99.0); Mean Platelet Volume 8.5 fL (7.4-10.4); Platelet Count 294 10^3/uL (130-400); Red Blood Cell Count 4.45 10^6/uL (4.20-5.40); Red Cell Dist. Width 13.2 % (11.5-14.5); White Blood Cell Count 7.6 10^3/uL (4.8-10.8)
[2024-03-02 13:55] LABS: Urine Albumin Trace (Neg - Trace); Urine Bilirubin Negative (Negative); Urine Character Very Cloudy (Clear); Urine Color Yellow; Urine Glucose Negative (Negative); Urine Ketone Negative (Negative); Urine Leukocyte 2+ (Negative); Urine Nitrite Negative (Negative); Urine Occult Blood 3+ (Negative); Urine Specific Gravity 1.015 (<1.030); Urine Urobilinogen Negative (Neg - 1+); Urine pH 6.5 (5.0-9.0)
[2024-03-02 14:02] LABS: INR 1.07; PT 13.7 Sec (11.4-14.6)
[2024-03-02 14:03] LABS: APTT 29.9 Sec (23.4-35.0); Blood Urea Nitrogen 16 mg/dl (7-17); Calcium 9.6 mg/dl (8.4-10.2); Carbon Dioxide 30 mmol/L (22-30); Chloride 108 mmol/L (98-107); Estimated Creatinine Clearance 45 ml/min; Glucose 91 mg/dl (70-99); Potassium 4.2 mmol/L (3.5-5.1); Sodium 142 mmol/L (135-145); eGFR > 60.00
[2024-03-02 14:19] LABS: Urine White Cell 30-40 /HPF (0-5)
[2024-03-02 14:20] LABS: Urine Amorphous Seen
[2024-03-04] VITALS (18 sets, daily range): BP systolic 129–206; BP diastolic 58–97; BMI 30.2
[2024-03-04] MEDS: NORMOSOL-R 1000 IV (08:08)
[2024-03-04] MEDS: Pyridium 200 MG PO (11:15)
[2024-03-04] MEDS: DILAUDID 0.25 MG IV (11:20)
[2024-03-04] MEDS: APRESOLINE 5 MG IV ×3 (11:23→11:53)
--- NOTE | 2024-03-04 12:17 | SUR.PHASEI ---
Pt. reporting sever urethral burning. Pt. HTN and medicated per MAR for HTN as requested by MD ross. No improvement in blood pressure 0.25 of Dilaudid given for pain (lower dose than ordered in the setting of receiving anti-HTN). Pt. bladder
scan for +500cc and straight cath with no issues for cloudy pink urine 600cc drained, pt. reports some relief of urethral burning sensation. MD moreno made aware and would like Pt. to void prior to discharge home
[2024-03-04] MEDS: VENTOLIN NEBULES 2.5 MG INH (13:33)
== END 2024-03-04 14:27 | disposition home or self-care (01) ==
LOC: SDS 06:39
PROVIDERS: ATTENDING PHYSICIAN Urology; FAMILY PHYSICIAN Family Medicine
DX: N13.1 Hydronephrosis with ureteral stricture, not elsewhere classified (principal); N32.9 Bladder disorder, unspecified; N30.90 Cystitis, unspecified without hematuria
CPT/HCPCS: 52332; 52204; 88305; 36415; 74420; 76000; 80048; 81003; 81015; 85027; 85610; 85730; 94640; A4300; C1769; C2617

== ENCOUNTER → 2024-03-08 09:54 | Outpatient (REF) | payer OTHER, SELFPAY | LOC: RAD 09:54 | PROVIDERS: ATTENDING PHYSICIAN Urology; FAMILY PHYSICIAN Family Medicine | DX: N13.5 Crossing vessel and stricture of ureter without hydronephrosis (principal) | CPT/HCPCS: 78708; A9539 ==

== ENCOUNTER 2024-05-27 09:58 | Inpatient (IN) | payer OTHER, SELFPAY ==
[2024-05-18 14:02] VITALS: BMI 32.2
[2024-05-18 14:33] LABS: Urine Albumin 1+ (Neg - Trace); Urine Bilirubin Negative (Negative); Urine Character Very Cloudy (Clear); Urine Color Yellow; Urine Glucose Negative (Negative); Urine Ketone Negative (Negative); Urine Leukocyte 2+ (Negative); Urine Nitrite Negative (Negative); Urine Occult Blood 4+ (Negative); Urine Specific Gravity 1.015 (<1.030); Urine Urobilinogen Negative (Neg - 1+)
[2024-05-18 15:18] LABS: Urine White Cell >100 /HPF (0-5)
--- NOTE | 2024-05-24 07:48 | PTCARENOTE ---
Patients 05/18 UA w/ > 100 WBC, UA culture abnormal- Reva @ Dr. Haddad office notified
[2024-05-27] VITALS (11 sets, daily range): BP systolic 119–166; BP diastolic 59–85; BMI 32.2; BMI 33.6
--- NOTE | 2024-05-27 18:54 | W.IMMPOSTOP ---
Surgical Immed Post Op Note
-
Primary Surgeon: Luciano
Assisting Surgeon: Wander
Pre-op Diagnosis: R ureteral stricture
Post-op Diagnosis: same
Procedure Performed: Robotic R ureteral reimplant, psoas hitch, boari flap
Anesthesia Type: genera;
Specimen / Cultures: -
Estimated Blood Loss: 50cc
Complications: none
Operative Findings:
[2024-05-27 18:57] LABS: Hematocrit 39.5 % (37.0-47.0); Hemoglobin 13.4 g/dL (12.0-16.0)
[2024-05-27 19:17] LABS: Blood Urea Nitrogen 14 mg/dl (7-17); Calcium 8.7 mg/dl (8.4-10.2); Carbon Dioxide 24 mmol/L (22-30); Chloride 106 mmol/L (98-107); Estimated Creatinine Clearance 57 ml/min; Glucose 128 mg/dl (70-99); Potassium 4.4 mmol/L (3.5-5.1); Sodium 142 mmol/L (135-145); eGFR > 60.00
[2024-05-27] MEDS: NSS 1000 IV (20:40)
[2024-05-27] MEDS: COMBIGAN EYE DROPS 1 DROP LEFT EYE (22:43)
[2024-05-27] MEDS: SENOKOT 17.2 MG PO (22:44)
[2024-05-27] MEDS: CRESTOR 20 MG PO (22:44)
[2024-05-27] MEDS: CELEXA 20 MG PO (22:52)
[2024-05-28] VITALS (7 sets, daily range): BP systolic 101–125; BP diastolic 54–61; PULSE 65–66; O2SAT 94–95
[2024-05-28] MEDS: TYLENOL 650 MG PO ×2 (04:44→14:30)
[2024-05-28] MEDS: SYNTHROID 88 MCG PO (04:44)
[2024-05-28] MEDS: MYLICON 80 MG PO ×3 (04:44→18:10)
[2024-05-28] MEDS: REFRESH EYE DROPS (PF) 1 DROPS OPHTH ×2 (04:44→22:07)
[2024-05-28 06:27] LABS: Hematocrit 34.8 % (37.0-47.0); Hemoglobin 11.7 g/dL (12.0-16.0); Mean Corp Hgb Conc. 33.6 g/dL (33.0-37.0); Mean Corpuscular Hgb 31.2 pg (27.0-31.0); Mean Corpuscular Volume 92.8 fL (81.0-99.0); Mean Platelet Volume 8.5 fL (7.4-10.4); Platelet Count 266 10^3/uL (130-400); Red Blood Cell Count 3.75 10^6/uL (4.20-5.40); Red Cell Dist. Width 12.6 % (11.5-14.5); White Blood Cell Count 14.8 10^3/uL (4.8-10.8)
[2024-05-28] MEDS: NSS 1000 IV (06:48)
[2024-05-28 06:59] LABS: Blood Urea Nitrogen 16 mg/dl (7-17); Calcium 8.7 mg/dl (8.4-10.2); Carbon Dioxide 24 mmol/L (22-30); Chloride 107 mmol/L (98-107); Estimated Creatinine Clearance 51 ml/min; Glucose 130 mg/dl (70-99); Potassium 4.1 mmol/L (3.5-5.1); Sodium 142 mmol/L (135-145); eGFR > 60.00
[2024-05-28] MEDS: ZESTRIL 10 MG PO (08:51)
[2024-05-28] MEDS: VITAMIN D3 (cholecalciferol) 25 MCG PO (08:51)
[2024-05-28] MEDS: SENOKOT 17.2 MG PO ×2 (08:51→20:09)
[2024-05-28] MEDS: DETROL LA 4 MG PO (08:52)
[2024-05-28] MEDS: COMBIGAN EYE DROPS 1 DROP LEFT EYE ×2 (08:52→20:09)
--- NOTE | 2024-05-28 08:59 | W.PN.URO.CBU ---
Today's Communication / Plan
-
Corea to remain 2 week
JOANNE drainage as expected: serosanguinous
Increase activity today
Assessment / Plan
-
Right distal ureteral stricture
s/p ureteral reimplantation/Boari flap 05/27/24
Diagnosis
-
Date of Service: May 28, 2024
-
Patient Diagnosis:
Right ureteral stricture
s/p robotic-assisted laparoscopic right ureteroneocystostomy with Boari flap 05/27/24
Subjective
-
Feels well
No flatus
Tolerating diet
Objective
-
Vital Signs
Temp Pulse Resp BP Pulse Ox
98.1 F 66 18 125/57 96
05/28/24 07:50 05/28/24 07:50 05/28/24 07:50 05/28/24 07:50 05/28/24 07:50
Intake and Output
05/27/24 05/28/24 05/29/24
06:59 06:59 06:59
Intake Total 2019 / 2019
Output Total 550 / 550
Balance 1470 / 1470
Intake:
Oral fluids 720 / 720
IV fluids (Total) 1300 / 1300
Normosol 100 / 100
Output:
Urine, Corea 550 / 550
Laboratory Results
05/28/24 05:37
05/28/24 05:37
Review of Systems
-
Constitutional: Fatigue
Respiratory: No Symptoms
Cardiac: No Symptoms
Abdomen/GI: Abdominal Pain
Neurological: No Symptoms
Physical Exam
-
General - well nourished, no acute distress
Abdomen - soft, incisions clean/dry, JOANNE site with modest bloody drainage
Corea draining concetta urine
Skin - warm & dry with no rash
Neuro - AOx3, no motor deficits
Counseling
-
Case management consult: patient lives alone
--- NOTE | 2024-05-28 11:05 | CM ---
Met with patient at bedside.
IA Completed
Case management consults completed.
Lives at home alone in a 1 floor home with 1 step to enter.
PLOF: Independent with walker (2 falls at home, last in October)
DME: walker, cane, commode, shower seat
States no VN in past, had been at [facility] in past
Called daughter Gypsy and discussed PT/OT to eval.
Discussed options of SNF with patient if recommended by PT
Referrals added in careport
Denies housing/utilities/food/transportation insecurities
PCP: Dawn Nunez
PharmacY: [address], [place]
PLAN: Await PT/OT evals - if SNF recommended will need to obtain insurance authorization
[2024-05-28] MEDS: DILAUDID 0.5 MG IV (20:08)
[2024-05-28] MEDS: CELEXA 20 MG PO (22:02)
[2024-05-28] MEDS: XALATAN OPHTHALMIC SOLUTION 1 DROP BOTH EYES (22:02)
[2024-05-28] MEDS: CRESTOR 20 MG PO (22:02)
[2024-05-29] MEDS: DILAUDID 0.5 MG IV (04:34)
[2024-05-29] MEDS: SYNTHROID 88 MCG PO (04:34)
--- NOTE | 2024-05-29 08:06 | W.PN.URO.CBU ---
Today's Communication / Plan
-
routine post op care
Assessment / Plan
-
Right distal ureteral stricture
s/p ureteral reimplantation/Boari flap 05/27/24
continue to advance post op care
UOOB
wean pain meds as tolerated
bowel regimen
continue romero and kris
ultimate plan for rehab at discharge
Diagnosis
-
Date of Service: May 29, 2024
-
Patient Diagnosis:
Right ureteral stricture
s/p robotic-assisted laparoscopic right ureteroneocystostomy with Boari flap 05/27/24
Subjective
-
pt doing ok
c/o of some abd fullness
minimal flatus
urine clear and kris output minimal
Objective
-
Vital Signs
Temp Pulse Resp BP Pulse Ox
99.0 F 71 16 114/55 93
05/28/24 23:32 05/28/24 23:32 05/28/24 23:32 05/28/24 23:32 05/28/24 23:32
Intake and Output
05/28/24 05/29/24 05/30/24
06:59 06:59 06:59
Intake Total 2019 2720 / 2720
Output Total 550 / 550 1000 / 1000
Balance 1470 / 1470 1720 / 1720
Intake:
Oral fluids 720 / 720 1920 / 1920
IV fluids (Total) 1300 / 1300 800 / 800
Normosol 100 / 100
Output:
Drain Output (Total) 75 / 75
Left Abdomen Tejas-Patel 75 / 75
Urine, Romero 550 / 550 925 / 925
Review of Systems
-
Constitutional: Fatigue
Respiratory: No Symptoms
Cardiac: No Symptoms
Abdomen/GI: Abdominal Pain
Physical Exam
-
General - no acute distress
Abdomen - soft, mildly distended
Skin - warm & dry with no rash
Neuro - AOx3, no motor deficits
Extremities - no clubbing, no cyanosis, no edema
Incision - clean, dry
[2024-05-29 08:53] VITALS: BP 150/74
[2024-05-29] MEDS: ULTRAM 50 MG PO (08:54)
[2024-05-29] MEDS: COMBIGAN EYE DROPS 1 DROP LEFT EYE ×2 (08:54→20:29)
[2024-05-29] MEDS: SENOKOT 17.2 MG PO ×2 (08:54→20:29)
[2024-05-29] MEDS: VITAMIN D3 (cholecalciferol) 25 MCG PO (08:55)
[2024-05-29] MEDS: ZESTRIL 10 MG PO (08:55)
[2024-05-29 09:08] LABS: Hematocrit 36.7 % (37.0-47.0); Hemoglobin 12.4 g/dL (12.0-16.0); Mean Corp Hgb Conc. 33.8 g/dL (33.0-37.0); Mean Corpuscular Hgb 31.3 pg (27.0-31.0); Mean Corpuscular Volume 92.7 fL (81.0-99.0); Mean Platelet Volume 8.5 fL (7.4-10.4); Platelet Count 262 10^3/uL (130-400); Red Blood Cell Count 3.96 10^6/uL (4.20-5.40); Red Cell Dist. Width 12.8 % (11.5-14.5); White Blood Cell Count 16.7 10^3/uL (4.8-10.8)
[2024-05-29 09:50] LABS: Blood Urea Nitrogen 20 mg/dl (7-17); Calcium 9.2 mg/dl (8.4-10.2); Carbon Dioxide 27 mmol/L (22-30); Chloride 106 mmol/L (98-107); Estimated Creatinine Clearance 45 ml/min; Glucose 100 mg/dl (70-99); Potassium 3.8 mmol/L (3.5-5.1); Sodium 141 mmol/L (135-145); eGFR > 60.00
[2024-05-29 11:04] LABS: Glucose - Point of Care 104 mg/dl (70-99)
[2024-05-29] MEDS: DULCOLAX 10 MG RECTAL (14:18)
[2024-05-29] MEDS: TYLENOL 650 MG PO (14:18)
[2024-05-29 15:23] VITALS: BP 137/56
[2024-05-29 17:57] LABS: Glucose - Point of Care 89 mg/dl (70-99)
[2024-05-29 22:56] VITALS: BP 133/57
[2024-05-29] MEDS: CELEXA 20 MG PO (23:09)
[2024-05-29] MEDS: CRESTOR 20 MG PO (23:09)
[2024-05-29] MEDS: XALATAN OPHTHALMIC SOLUTION 1 DROP BOTH EYES (23:10)
[2024-05-30] MEDS: SYNTHROID 88 MCG PO (04:07)
[2024-05-30] MEDS: TYLENOL 650 MG PO ×2 (04:11→21:33)
[2024-05-30 07:20] VITALS: BP 128/62
--- NOTE | 2024-05-30 08:09 | W.PN.URO.CBU ---
Today's Communication / Plan
-
post op care
Assessment / Plan
-
Right distal ureteral stricture
s/p ureteral reimplantation/Boari flap 05/27/24
continue to advance post op care
UOOB and IS- stressed importance of this to patient
wean pain meds as tolerated
bowel regimen- repeat supp today
continue romero
kris removed
monitor wbc
ultimate plan for rehab at discharge
Diagnosis
-
Date of Service: May 30, 2024
-
Patient Diagnosis:
Right ureteral stricture
s/p robotic-assisted laparoscopic right ureteroneocystostomy with Boari flap 05/27/24
Subjective
-
pt still c/o of abd discomfort
has not been UOOB much
on 2liters oxygen
wbc up- but no fevers
abd benign
minimal drain output
+ flatus but no BM
Objective
-
Vital Signs
Temp Pulse Resp BP Pulse Ox
98.0 F 64 16 128/62 96
05/30/24 07:20 05/30/24 07:20 05/30/24 07:20 05/30/24 07:20 05/30/24 07:20
Intake and Output
05/29/24 05/30/24 05/31/24
06:59 06:59 06:59
Intake Total 2720 / 2720 1260 / 1260
Output Total 1000 / 1000 1230 / 1230
Balance 1720 / 1720 30 / 30
Intake:
Oral fluids 1920 / 1920 1260 / 1260
IV fluids (Total) 800 / 800
Output:
Drain Output (Total) 75 / 75 80 / 80
Left Abdomen Tejas-Patel 75 / 75 80 / 80
Urine, Romero 925 / 925 900 / 900
Urine, Voided 250 / 250
Laboratory Results
05/29/24 08:31
05/29/24 08:31
Review of Systems
-
Constitutional: Fatigue
Respiratory: No Symptoms
Cardiac: No Symptoms
Abdomen/GI: Abdominal Pain
Musculoskeletal: Muscle Stiffness
Skin: No Symptoms
Neurological: No Symptoms
Physical Exam
-
General - no acute distress
Abdomen - soft, minimal tenderness
Genitalia - normal
Skin - warm & dry with no rash
Neuro - AOx3, no motor deficits
Extremities - no clubbing, no cyanosis, no edema
Incision - clean, dry
[2024-05-30] MEDS: DULCOLAX 10 MG PO (08:37)
[2024-05-30] MEDS: ZESTRIL 10 MG PO (08:40)
[2024-05-30] MEDS: VITAMIN D3 (cholecalciferol) 25 MCG PO (08:40)
[2024-05-30] MEDS: SENOKOT 17.2 MG PO ×2 (08:40→21:21)
[2024-05-30] MEDS: COMBIGAN EYE DROPS 1 DROP LEFT EYE ×2 (08:41→21:17)
[2024-05-30 15:30] VITALS: BP 147/62
[2024-05-30] MEDS: CELEXA 20 MG PO (21:18)
[2024-05-30] MEDS: XALATAN OPHTHALMIC SOLUTION 1 DROP BOTH EYES (21:18)
[2024-05-30] MEDS: CRESTOR 20 MG PO (21:21)
[2024-05-30 22:49] VITALS: BP 154/78
[2024-05-30] MEDS: MYLICON 80 MG PO (22:55)
[2024-05-30] MEDS: ZOFRAN 4 MG IV (22:55)
[2024-05-31] MEDS: SYNTHROID 88 MCG PO (04:04)
[2024-05-31 07:09] LABS: Hematocrit 39.2 % (37.0-47.0); Hemoglobin 13.2 g/dL (12.0-16.0); Mean Corp Hgb Conc. 33.7 g/dL (33.0-37.0); Mean Corpuscular Hgb 31.6 pg (27.0-31.0); Mean Corpuscular Volume 93.8 fL (81.0-99.0); Mean Platelet Volume 8.9 fL (7.4-10.4); Platelet Count 279 10^3/uL (130-400); Red Blood Cell Count 4.18 10^6/uL (4.20-5.40); Red Cell Dist. Width 12.4 % (11.5-14.5); White Blood Cell Count 14.2 10^3/uL (4.8-10.8)
[2024-05-31 07:30] VITALS: BP 144/72
[2024-05-31 07:35] LABS: Blood Urea Nitrogen 15 mg/dl (7-17); Calcium 8.8 mg/dl (8.4-10.2); Carbon Dioxide 28 mmol/L (22-30); Chloride 103 mmol/L (98-107); Estimated Creatinine Clearance 45 ml/min; Glucose 110 mg/dl (70-99); Potassium 3.5 mmol/L (3.5-5.1); Sodium 141 mmol/L (135-145); eGFR > 60.00
[2024-05-31] MEDS: ULTRAM 50 MG PO (08:43)
[2024-05-31] MEDS: VITAMIN D3 (cholecalciferol) 25 MCG PO (08:43)
[2024-05-31] MEDS: SENOKOT 17.2 MG PO ×2 (08:43→20:30)
[2024-05-31] MEDS: COMBIGAN EYE DROPS 1 DROP LEFT EYE ×2 (08:44→20:31)
[2024-05-31] MEDS: ZESTRIL 10 MG PO (08:44)
--- NOTE | 2024-05-31 09:18 | W.PN.URO.CBU ---
Today's Communication / Plan
-
ambulate/pulm toilet
follow labd
clears/KUB/pepcid
Assessment / Plan
-
Right distal ureteral stricture
s/p ureteral reimplantation/Boari flap 05/27/24
pt stable- but suspect element of post op ileus
wbc declining- no fevers- will observe
continue UOOB/pulmonary toilet
back down to clears and add pepcid- check abd film
eventual rehab
recehck labs in am
Diagnosis
-
Date of Service: May 31, 2024
-
Patient Diagnosis:
Right ureteral stricture
s/p robotic-assisted laparoscopic right ureteroneocystostomy with Boari flap 05/27/24
Subjective
-
pt looks a little better today
pain improved- but vomited this am
is off oxygen
was up ambulating quite a bit yesterday
has had some flatus- but no BM
Objective
-
Vital Signs
Temp Pulse Resp BP Pulse Ox
98.7 F 65 15 144/72 91
05/31/24 07:30 05/31/24 07:30 05/31/24 07:30 05/31/24 07:30 05/31/24 07:30
Intake and Output
05/30/24 05/31/24 06/01/24
06:59 06:59 06:59
Intake Total 1260 / 1260 600 / 600
Output Total 1230 / 1230 700 / 700
Balance 30 / 30 -100 / -100
Intake:
Oral fluids 1260 / 1260 600 / 600
Output:
Drain Output (Total) 80 / 80
Left Abdomen Tejas-Patel 80 / 80
Urine, Romero 900 / 900 700 / 700
Urine, Voided 250 / 250
Laboratory Results
05/31/24 05:28
05/31/24 05:28
Review of Systems
-
Constitutional: Fatigue
Respiratory: No Symptoms
Cardiac: No Symptoms
Abdomen/GI: Abdominal Pain, Nausea and Vomiting
: Other (romero)
Physical Exam
-
General - no acute distress
Abdomen - soft, somewhat distended but stable- mild incisional tenderness
Genitalia - rmoero in place
Skin - warm & dry with no rash
Neuro - AOx3, no motor deficits
Extremities - no clubbing, no cyanosis, no edema
Incision - clean, dry
[2024-05-31] MEDS: NSS (PRESERVATIVE FREE) 8 ML IV (10:26)
[2024-05-31] MEDS: PEPCID 20 MG IV (10:26)
[2024-05-31] MEDS: FLUSH (NSS) 2 FLUSH IV (10:27)
[2024-05-31] MEDS: DULCOLAX 10 MG RECTAL (11:30)
--- NOTE | 2024-05-31 14:26 | CM ---
Reviewed the chart notes and spoke with the patient's daughter via telephone. [facility] accepted the patient. Precert will be required. Diet dropped to clears today. CM continues to be available to patient/family and is monitoring medical plan
for needs at discharge.
[facility] NPI# [id number]
Dr. Benavides NPI# [id number]
[facility] patient
Plan: Discharge to [facility] when medically stable and precert obtained.
[2024-05-31 15:15] VITALS: BP 137/61
[2024-05-31] MEDS: CRESTOR 20 MG PO (20:30)
[2024-05-31] MEDS: CELEXA 20 MG PO (20:30)
[2024-05-31] MEDS: XALATAN OPHTHALMIC SOLUTION 1 DROP BOTH EYES (20:31)
[2024-05-31 22:50] VITALS: BP 128/58
[2024-06-01] MEDS: SYNTHROID 88 MCG PO (05:35)
[2024-06-01 07:07] LABS: % Basophils 0.3 % (0-2); % Eosinophils 2.5 % (0-6); % Immature Granulocytes 0.5 % (0-0.5); % Lymphocytes 11.9 % (20.5-51.1); % Monocytes 13.3 % (1.7-9.3); % Neutrophils 71.5 % (42.2-75.2); Absolute Eosinophils 0.3 10^3/uL (0-0.7); Absolute Immature Granulocytes 0.1 10^3/uL (0-0.05); Absolute Lymphocytes 1.4 10^3/uL (1.2-3.4); Absolute Monocytes 1.6 10^3/uL (0.1-0.6); Absolute Neutrophils 8.5 10^3/uL (1.4-6.5); Hematocrit 37.2 % (37.0-47.0); Hemoglobin 12.5 g/dL (12.0-16.0); Mean Corp Hgb Conc. 33.6 g/dL (33.0-37.0); Mean Corpuscular Hgb 30.9 pg (27.0-31.0); Mean Corpuscular Volume 92.1 fL (81.0-99.0); Mean Platelet Volume 8.7 fL (7.4-10.4); Nucleated Red Blood Cells % 0 %; Platelet Count 281 10^3/uL (130-400); Red Blood Cell Count 4.04 10^6/uL (4.20-5.40); Red Cell Dist. Width 12.5 % (11.5-14.5); White Blood Cell Count 11.9 10^3/uL (4.8-10.8)
[2024-06-01 07:36] LABS: Blood Urea Nitrogen 17 mg/dl (7-17); Calcium 8.6 mg/dl (8.4-10.2); Carbon Dioxide 26 mmol/L (22-30); Chloride 102 mmol/L (98-107); Estimated Creatinine Clearance 51 ml/min; Glucose 94 mg/dl (70-99); Potassium 3.6 mmol/L (3.5-5.1); Sodium 140 mmol/L (135-145); eGFR > 60.00
[2024-06-01 08:11] VITALS: BP 144/68
[2024-06-01] MEDS: PEPCID 20 MG IV (08:50)
[2024-06-01] MEDS: SENOKOT 17.2 MG PO ×2 (08:51→20:28)
[2024-06-01] MEDS: NSS (PRESERVATIVE FREE) 8 ML IV (08:51)
[2024-06-01] MEDS: COMBIGAN EYE DROPS 1 DROP LEFT EYE ×2 (08:52→20:28)
[2024-06-01] MEDS: ZESTRIL 10 MG PO (08:55)
[2024-06-01] MEDS: VITAMIN D3 (cholecalciferol) 25 MCG PO (08:55)
--- NOTE | 2024-06-01 09:23 | W.PN.URO.CBU ---
Today's Communication / Plan
-
Regular diet
Discharge planning
Assessment / Plan
-
Right distal ureteral stricture
s/p ureteral reimplantation/Boari flap 05/27/24
Resolving post operative ileus. KUB c/w ileus, now moving bowels and tolerating clears
Advance to regular diet
WBC normalizing
continue UOOB/pulmonary toilet
Plan for discharge to rehab likely tomorrow if bed available
Diagnosis
-
Date of Service: June 01, 2024
-
Patient Diagnosis:
Right ureteral stricture
s/p robotic-assisted laparoscopic right ureteroneocystostomy with Boari flap 05/27/24
Subjective
-
No further episodes of vomiting
tolerated clears all day yesterday
ambulating
pain controlled
some belching
had multiple BMs
Objective
-
Vital Signs
Temp Pulse Resp BP Pulse Ox
98.6 F 65 14 144/68 93
06/01/24 08:11 06/01/24 08:11 06/01/24 08:11 06/01/24 08:11 06/01/24 08:11
Intake and Output
05/31/24 06/01/24 06/02/24
06:59 06:59 06:59
Intake Total 600 / 600 1440 / 1440
Output Total 700 / 700 950 / 950
Balance -100 / -100 490 / 490
Intake:
Oral fluids 600 / 600 1440 / 1440
Output:
Urine, Corea 700 / 700 950 / 950
Laboratory Results
06/01/24 05:10
06/01/24 05:10
Physical Exam
-
General - well developed, well nourished, no acute distress
Chest - clear bilaterally
Abdomen - soft, non-tender
Genitalia - normal
Rectal - normal
Skin - warm & dry with no rash
Neuro - AOx3, no motor deficits
Extremities - no clubbing, no cyanosis, no edema
Incision - clean, dry
Dressing - removed
--- NOTE | 2024-06-01 10:51 | CM ---
Patient seen at bedside. Patient diet advanced back to fun. CM tt to physician requesting clarification about when patient is ready for transfer to SNF. CM will need to obtain auth when patient is ready for discharge and bed is available. CM will
continue to follow for discharge planning needs.
Plan; SNF; [facility] pending bed availability and auth confirmed
[facility] NPI# [id number]
Dr. Benavides NPI# [id number]
[facility] patient
[2024-06-01] MEDS: MYLICON 80 MG PO (12:32)
[2024-06-01 16:00] VITALS: BP 156/71
[2024-06-01 16:22] VITALS: BP 156/71; PULSE 63; O2SAT 97
[2024-06-01] MEDS: XALATAN OPHTHALMIC SOLUTION 1 DROP BOTH EYES (21:44)
[2024-06-01] MEDS: CELEXA 20 MG PO (21:44)
[2024-06-01] MEDS: CRESTOR 20 MG PO (21:44)
[2024-06-01 23:44] VITALS: BP 141/64
[2024-06-01] MEDS: DULCOLAX 10 MG RECTAL (23:44)
[2024-06-02] MEDS: SYNTHROID 88 MCG PO (04:30)
[2024-06-02 07:41] VITALS: BP 152/63
--- NOTE | 2024-06-02 08:52 | W.PN.URO.CBU ---
Today's Communication / Plan
-
Discharge
Assessment / Plan
-
Right distal ureteral stricture
s/p ureteral reimplantation/Boari flap 05/27/24
Resolved post operative ileus, tolerating diet and +BM
Plan for discharge to rehab today
Discharge with romero and stent in place
Cystogram prior to follow up on 06/14
Diagnosis
-
Date of Service: June 02, 2024
-
Patient Diagnosis:
Right ureteral stricture
s/p robotic-assisted laparoscopic right ureteroneocystostomy with Boari flap 05/27/24
Subjective
-
tolerating diet
ambulating
pain controlled
no n/v
Objective
-
Vital Signs
Temp Pulse Resp BP Pulse Ox
98.6 F 64 14 152/63 93
06/02/24 07:41 06/02/24 07:41 06/02/24 07:41 06/02/24 07:41 06/02/24 07:41
Intake and Output
06/01/24 06/02/24 06/03/24
06:59 06:59 06:59
Intake Total 1440 / 1440 1560 / 1560
Output Total 950 / 950 525 / 525
Balance 490 / 490 1035 / 1035
Intake:
Oral fluids 1440 / 1440 1560 / 1560
Output:
Urine, Romero 950 / 950 525 / 525
Laboratory Results
06/01/24 05:10
06/01/24 05:10
Physical Exam
-
General - well developed, well nourished, no acute distress
Chest - clear
Abdomen - soft, non-tender
Skin - warm & dry with no rash
Neuro - AOx3, no motor deficits
Incision - clean, dry
Dressing - clean, dry, intact
[2024-06-02] MEDS: NSS (PRESERVATIVE FREE) 8 ML IV (09:01)
[2024-06-02] MEDS: SENOKOT 17.2 MG PO (09:02)
[2024-06-02] MEDS: PEPCID 20 MG IV (09:02)
[2024-06-02] MEDS: COMBIGAN EYE DROPS 1 DROP LEFT EYE (09:03)
[2024-06-02] MEDS: VITAMIN D3 (cholecalciferol) 25 MCG PO (09:03)
[2024-06-02] MEDS: ZESTRIL 10 MG PO (09:03)
--- NOTE | 2024-06-02 10:32 | CM ---
Addendum entered by Beverly Erwin RN 06/02/24 13:35:
Discussed with the patient's daughter transportation. Per daughter, she will pay to have patient transported by w/c van. Acute Care # provided for the daughter to call with credit care.
Addendum entered by Beverly Erwin RN 06/02/24 12:16:
Plan: [facility]
Call report to: [phone]
Fax report to: [phone]
Addendum entered by Beverly Erwin RN 06/02/24 12:11:
Received call from /BS; approval for [facility] stay 06/02-06/07; NRD 06/07; call [phone]; Auth # [id number]
Addendum entered by Beverly Erwin RN 06/02/24 11:06:
CM updated the patient at bedside and the patient's daughter via telephone regarding the auth request needing to go to medical transcription for review. IMM signed and placed on chart.
Original Note:
Reviewed the chart notes. Auth started for [facility] Pended Auth # [id number]; to medical review. CM continues to be available to patient/family and is monitoring medical plan for needs at discharge.
Plan: Awaiting medical review determination.
[2024-06-02 14:54] VITALS: BP 146/67
== END 2024-06-02 17:30 | DRG 659 ==
LOC: 2 SOUTH 09:58
PROVIDERS: Specialist; ADMITTING PHYSICIAN Urology; FAMILY PHYSICIAN Family Medicine
PROC: 0T164ZB Bypass Right Ureter to Bladder, Percutaneous Endoscopic Approach (ICD-10-PCS; 2024-05-31)
PROC: 8E0W4CZ Robotic Assisted Procedure of Trunk Region, Percutaneous Endoscopic Approach (ICD-10-PCS; 2024-05-31)
PROC: 0T764DZ Dilation of Right Ureter with Intraluminal Device, Percutaneous Endoscopic Approach (ICD-10-PCS; 2024-05-31)
DX: N13.5 Crossing vessel and stricture of ureter without hydronephrosis (principal); K68.2 Retroperitoneal fibrosis; K56.7 Ileus, unspecified
CPT/HCPCS: 36415; 74018; 80048; 81003; 81015; 82962; 85014; 85018; 85025; 85027; 86850; 86900; 86901; 87077; 87086; 87147; 87186; 93005; 97162; 97167; 97530; 97535; C1729; C1769; C2617

== ENCOUNTER → 2024-06-08 10:24 | Outpatient (REF) | payer OTHER, SELFPAY | LOC: RAD 10:24 | PROVIDERS: ATTENDING PHYSICIAN Urology; FAMILY PHYSICIAN Family Medicine | DX: N13.5 Crossing vessel and stricture of ureter without hydronephrosis (principal) | CPT/HCPCS: 51600; 74430; Q9967 ==

== ENCOUNTER → 2024-06-14 10:38 | Outpatient (REF) | payer OTHER, SELFPAY ==
[2024-06-14 12:29] LABS: Hematocrit 35.2 % (37.0-47.0); Hemoglobin 11.5 g/dL (12.0-16.0); Mean Corp Hgb Conc. 32.7 g/dL (33.0-37.0); Mean Corpuscular Hgb 31.2 pg (27.0-31.0); Mean Corpuscular Volume 95.4 fL (81.0-99.0); Mean Platelet Volume 8.4 fL (7.4-10.4); Platelet Count 359 10^3/uL (130-400); Red Blood Cell Count 3.69 10^6/uL (4.20-5.40); Red Cell Dist. Width 12.8 % (11.5-14.5); White Blood Cell Count 7.3 10^3/uL (4.8-10.8)
[2024-06-14 12:36] LABS: Blood Urea Nitrogen 12 mg/dl (7-17); Carbon Dioxide 25 mmol/L (22-30); Chloride 107 mmol/L (98-107); Glucose 92 mg/dl (70-99); Potassium 4.1 mmol/L (3.5-5.1); Sodium 142 mmol/L (135-145); eGFR > 60.00
== END ==
LOC: OLABP 10:38
PROVIDERS: ATTENDING PHYSICIAN Family Medicine
DX: M62.81 Muscle weakness (generalized) (principal); N13.5 Crossing vessel and stricture of ureter without hydronephrosis
CPT/HCPCS: 36415; 80048; 85027

== ENCOUNTER → 2024-08-11 09:11 | Outpatient (REF) | payer OTHER, SELFPAY | LOC: HWRAD 09:11 | PROVIDERS: ATTENDING PHYSICIAN Urology; FAMILY PHYSICIAN Family Medicine | DX: Q62.63 Anomalous implantation of ureter (principal); N13.30 Unspecified hydronephrosis | CPT/HCPCS: 74176 ==

== ENCOUNTER → 2025-02-03 11:09 | Outpatient (REF) | payer OTHER, SELFPAY | LOC: HWRAD 11:09 | PROVIDERS: ATTENDING PHYSICIAN Urology; FAMILY PHYSICIAN Family Medicine | DX: N20.0 Calculus of kidney (principal); N39.0 Urinary tract infection, site not specified; N13.30 Unspecified hydronephrosis | CPT/HCPCS: 76770 ==

== ENCOUNTER 2025-04-22 23:53 | Emergency (ER) | payer OTHER, SELFPAY ==
[2025-04-22 23:55] VITALS: BP 170/72
[2025-04-23] VITALS: BP 165/72
[2025-04-23 00:45] VITALS: BMI 27.8
[2025-04-23] MEDS: TYLENOL 1000 MG PO (00:57)
[2025-04-23 01:25] VITALS: BP 138/58
--- NOTE | 2025-04-23 01:31 | ED.GENMED ---
History of Present Illness
General
Chief Complaint: Fall
Source: patient
Time Seen by Provider: 04/23/25 00:02
History of Present Illness
History of Present Illness:
Note:
CHIEF COMPLAINT(S)
Right thumb pain and left elbow pain after a fall.
HISTORY OF PRESENT ILLNESS
The patient is an 84-year-old female who presented with pain in her right thumb and left elbow following a fall in the bathroom. She is uncertain of the cause of the fall but reports that she landed between the toilet and the wall. She denies losing
consciousness, experiencing dizziness, or hitting her head during the incident. The patient is not currently taking any anticoagulant medication.
Upon examination, the patient reported tenderness at the proximal interphalangeal (PIP) joint of the right first digit and at the left olecranon process, an area that has previously been fractured. She retains a full range of motion in both wrists,
elbows, and shoulders, as well as in her knees and hips. No neck or back pain was reported, and no signs of head trauma were present.
It was decided to perform an X-ray of the right hand and left elbow to evaluate for potential fractures or other injuries.
PHYSICAL EXAM
General: Alert, no acute distress.
Skin: Warm, dry.
Head: Normocephalic, atraumatic.
Neck: Supple, trachea midline, normal range of motion.
Eye Ears, Nose, Mouth and Throat: Oral mucosa moist.
Cardiovascular: Normal peripheral perfusion, no edema.
Respiratory: Respirations are non-labored.
Gastrointestinal: Abdomen nondistended.
Back: Normal range of motion, normal alignment.
Musculoskeletal: Tenderness at the PIP joint of the right first digit and left olecranon process; normal range of motion in wrists, elbows, shoulders, knees, and hips.
Neurological: Alert and oriented to person, place, time, and situation, no focal neurological deficits observed.
Psychiatric: Cooperative, appropriate mood & affect.
PLAN
1. Obtain X-rays of the right hand and left elbow to assess for fractures or other injuries.
2. Follow up with results and determine further management based on imaging findings.
DIFFERENTIAL DIAGNOSIS
The Differential Diagnosis includes, in no particular order and is not limited to:
1. Fracture of the right thumb
2. Fracture of the left elbow (olecranon fracture)
3. Contusion of the right hand
4. Contusion of the left elbow
5. Sprain of the right thumb
6. Olecranon bursitis
7. Arthritis exacerbation
8. Soft tissue injury
9. Ligamentous injury
10. Tendon injury
Disposition:
SUMMARY OF ENCOUNTER
The patient, an 84-year-old female, presented to the emergency department after a fall resulting in injuries to her elbow and finger. She denied any head injury or syncope and exhibited a normal neurological assessment. No anticoagulant medications
were reported. A decision was made that CT imaging of the head was not warranted. Radiological imaging was conducted for the sustained injuries and found to be negative for fractures or other acute issues.
PLAN
The patient will be managed on an outpatient basis, with instructions for follow-up as necessary based on symptom progression.
INDEPENDENT REVIEW OF LABS AND INTERPRETATION OF TESTS
My independent radiology interpretation is negative imaging results for fractures or other acute injuries.
PATIENT EDUCATION AND COUNSELING
The patient was informed about the findings of her imaging studies and reassured regarding the lack of serious injury. She was advised to monitor her symptoms and seek further medical attention if any new symptoms arise.
FOLLOW-UP INSTRUCTIONS
The patient was discharged with instructions to follow up with her primary care provider if symptoms persist or worsen.
MEDICAL DECISION MAKING
-Complexity of Data Reviewed: Chronic conditions affecting care [none mentioned] Differential diagnosis considered included fracture or contusion of the elbow and finger.
-Data:
Category 1: My independent interpretation of radiology imaging revealed negative results for fractures or acute injuries.
-Risk: Prescription medication was not prescribed, and imaging was reviewed, contributing to the decision for discharge. The patients condition allowed for safe outpatient management.
DIAGNOSIS
- Contusion of elbow and finger (ICD-10 code: S50.0XXA - Contusion of elbow).
Past History
Past History
ED Past Medical History: Hypercholesterolemia, Hypothyroidism and Other (kidney stone)
ED Past Surgical History: Orthopedic
Social History
Tobacco: Non-smoker
Alcohol: None
Phy Exam
Physical Exam
Physical Exam:
.
Course
Orders/Labs/Results
Orders:
Orders
04/23/25 00:33
Elbow, 3 view, Left [CR Elbow - Left Min 3 Views ] Urgent
Comment:
Reason For Exam: fall
Hand, Right 3 View [CR Hand - Right Min 3 Views] Urgent
Comment:
Reason For Exam: fall
04/23/25 00:54
Acetaminophen [Tylenol] 1,000 mg PO NOW STA
Vital Signs
Initial and Last Documented VS:
Initial Vital Signs
Pulse BP
75 170/72
04/22/25 23:55 04/22/25 23:55
Last Documented Vital Signs
Temp Pulse Resp BP Pulse Ox
97.7 F 68 18 138/58 98
04/23/25 00:05 04/23/25 01:25 04/23/25 01:25 04/23/25 01:25 04/23/25 01:26
*Pulse Oximetry
SaO2: 98
Oxygen Mode of Delivery: Room air
Patient hypoxic: no
*Critical Care Note
Total Time (30-74mins, 75-104mins- exclusive of procedures): Not Applicable
ED Attending Note
-
Portions of this chart may have been created with voice recognition software.� Occasional wrong word or��sound alike� substitutions may have occurred due to the inherent limitations of voice recognition software.
Discharge Plan
Departure
Patient Disposition: Home (Routine Discharge)
Date of Disposition: 04/23/25
Time of Disposition: 01:32
Patient with high blood pressure during this ER visit?: No
Discharge Problem:
Contusion
Instructions: Contusion (DC)
Prescriptions:
No Action
levothyroxine [Levoxyl] 88 mcg Tablet
88 mcg PO 0400
citalopram 20 mg Tablet
20 mg PO HS
estradiol 0.01 % (0.1 mg/gram) Cream
0 appful VAGINAL MOTH
Rx Instructions:
twice weekly at night
tafluprost (PF) [Zioptan (PF)] 0.0015 % Dropperette
1 drp BOTH EYES HS
Probiotic 10 billion cell Capsule
10,000 mmu cells PO DAILY
multivitamin Tablet
1 tab PO DAILY
glucosamine sulfate [Glucosamine] 500 mg Tablet
1,000 mg PO DAILY
ascorbic acid (vitamin C) [Vitamin C] 250 mg Tablet,Chewable
250 mg PO DAILY
magnesium 250 mg Tablet
500 mg PO DAILY
brimonidine-timolol [Combigan] 0.2-0.5 % Drops
1 drp LEFT EYE BID
TheraTears 0.25 % Drops
1 drp OPHTHALMIC (EYE) QID PRN (Reason: DRY EYES)
lisinopril 10 mg Tablet
10 mg PO DAILY
docusate sodium [Colace] 100 mg Capsule
100 mg PO PRN PRN (Reason: constipation)
calcium carbonate 500 mg calcium (1,250 mg) Tablet,Chewable
1,000 mg PO DAILY
rosuvastatin 20 mg Tablet
20 mg PO HS
ibandronate 150 mg Tablet
150 mg PO QMONTH
cholecalciferol (vitamin D3) [Vitamin D3] 25 mcg (1,000 unit) Tablet
25 mcg PO DAILY
Gemtesa 75 mg Tablet
75 mg PO DAILY
Azo Cranberry
2 tab PO DAILY
tramadol 50 mg Tablet
50 mg PO Q6HPRN PRN (Reason: moderate pain) Qty: 15 0RF
Referrals:
Dawn Liu DO [Family Provider, Family Practice]
Activity Restrictions/Additional Instructions:
Return immediately for changes in mentation, weakness of any kind, shortness of breath, vomiting, or any other concerns. Please ice and rest your injured parts.
Interventions
Interventions:
*Risk Screen - Suicide Last Done: 04/23/25 00:01
*General Assessment Last Done: 04/23/25 00:01
*Neglect/Abuse Screening Last Done: 04/23/25 00:01
*ED COVID-19 Vaccine History Last Done: 04/23/25 00:01
ED-Musculoskeletal Assessment Last Done: 04/23/25 00:02
ED- Neurological Assessment Last Done: 04/23/25 00:02
ED-Skin Assessment Last Done: 04/23/25 00:02
Discharge Date and Time
Print Language: SLOVAK
[2025-04-23 01:33] VITALS: BP 146/64
[2025-04-23 02:00] VITALS: BP 131/57
== END 2025-04-23 03:19 | disposition home or self-care (01) ==
LOC: EMR 23:53
PROVIDERS: EMERGENCY PHYSICIAN Emergency Medicine; FAMILY PHYSICIAN Family Medicine
DX: S60.011A Contusion of right thumb without damage to nail, initial encounter (principal); S50.02XA Contusion of left elbow, initial encounter; W19.XXXA Unspecified fall, initial encounter; Y92.002 Bathroom of unspecified non-institutional (private) residence as the place of occurrence of the external cause; E78.00 Pure hypercholesterolemia, unspecified; E03.9 Hypothyroidism, unspecified
CPT/HCPCS: 99283; 73080; 73130